=== PATIENT | female | born 1985 | race Two or more races ===

== ENCOUNTER 2016-07-30 11:40 | Observation (INO) | payer MEDICAID ==
[2016-08-01] MEDS ORDERED: PREN27TA7 PO (12:48)
== END 2016-07-30 13:55 | disposition home or self-care (01) | DRG 566 ==
LOC: LDRP 11:40
PROVIDERS: ADMIT Specialist; ATTEND Specialist
DX: O48.0 Post-term pregnancy (principal); Z3A.40 40 weeks gestation of pregnancy
CPT/HCPCS: 59025; 76818; 81002; G0378